=== PATIENT | male | born 1960 | race Caucasian/White ===

== ENCOUNTER 2016-10-09 12:35 | Day surgery (SDC) | END 2016-10-09 18:10 | disposition home or self-care (01) | DX: S62.323D Displaced fracture of shaft of third metacarpal bone, left hand, subsequent encounter for fracture with routine healing (principal); X58.XXXD Exposure to other specified factors, subsequent encounter | CPT/HCPCS: 26615; J0690; J1100; J1170; J1885; J2250; J2405; J2765; J3010 ==